=== PATIENT | male | born 1985 | race Caucasian/White ===

== ENCOUNTER 2020-02-10 23:21 | Emergency (ER) | payer SELFPAY ==
[2020-02-10 23:41] VITALS: BP 151/83; PULSE 93; RESP 18; TEMP 37.4; O2SAT 98
--- NOTE | 2020-02-11 00:02 | PC.NURSE ---
pt left facility at this time. he states i'm going to leave because for some reason my arm just doesnt hurt anymore. pt instructed by this rn that he can return if symptoms reappear and/or worsen. pt ambulated out of facility w/ steady gait w/ girlfriend.
== END 2020-02-11 00:02 | disposition left against medical advice (07) ==
LOC: ANHED 02-11 00:33
DX: M25.521 Pain in right elbow (principal)
CPT/HCPCS: 99199

== ENCOUNTER 2020-03-01 18:25 | Emergency (ER) | payer BC, SELFPAY ==
[2020-03-01 18:37] VITALS: BP 126/70; PULSE 97; RESP 16; TEMP 37.1; O2SAT 100
--- NOTE | 2020-03-01 19:07 | ED.SKABFB ---
HPI - Skin/Abscess/Foreign Bdy General Chief complaint: Skin/Abscess/Foreign Body Stated complaint: insect bite Time Seen by Provider: 03/01/20 19:07 Source: patient Mode of arrival: ambulatory Limitations: no limitations History of Present Illness HPI narrative: Dalton Robledo is a 34 yo male with no PMH who got a tick bite 12 days ago- has classic bulls eye rash on R lower quadrant, no other symptoms. His mother pulled off tick but unsure if completely removed Related Data Allergies Allergy/AdvReac Type Severity Reaction Status Date / Time No Known Allergies Allergy Verified 03/01/20 18:43 Review of Systems Review of Systems: Narrative: CONSTITUTIONAL: Denies fever, chills, sweats. EYES: Denies visual changes, redness, discharge. ENT: Denies rhinorrhea, congestion, sore throat, otalgia. CARDIOVASCULAR: Denies chest pain, palpitations, edema. RESPIRATORY: Denies dyspnea, wheezing, cough GASTROINTESTINAL: Denies abdominal pain, nausea, vomiting, diarrhea. GENITOURINARY: Denies dysuria, hematuria, abnormal discharge SKIN: Denies rash or itching. Bull's-eye rash to right lower quadrant NEUROLOGIC: Denies numbness, or focal weakness. PSYCHIATRIC: Denies anxiety or depression. [facility] Family History Family History Other No acute medical problems Social History Social History (Updated 03/01/20 @ 19:14 by Erika Burden CNP) Smoking status: Never smoker Alcohol intake: current Alcohol use details: States drinks more than socially Comments At time of signature, I agree with nursing past medical, surgical, social and family history. There is no relevant family history pertinent to the presenting complaint. Exam Narrative: Exam Narrative: GENERAL: This is a well-nourished, well-developed patient, in mild distress. HEAD: normocephalic, atraumatic. EYES: Sclera clear/white. Vision is grossly intact. EARS: External ears normal, Hearing grossly intact. NOSE: External nose normal without nasal discharge, nares without redness, no rhinorrhea. THROAT: Mucous membranes moist, NECK: Neck supple, CARDIOVASCULAR: Regular rate and rhythm without murmurs, gallops, or rubs. RESPIRATORY: Clear to auscultation. Breath sounds equal bilaterally. No wheezes, rales, or rhonchi. GASTROINTESTINAL: Abdomen soft, SKIN: warm, intact with no suspicious lesions or rash, good texture and turgor. Classic bull's-eye circular rash to right lower abdomen tender in the center becoming indurated at the outer edges NEURO: awake, alert, and oriented to person, place and time. There were no obvious focal neurologic abnormalities. Steady gait EXTREMITIES: Normal range of motion. BACK: Nontender without deformity Course Course Emergency Course: Started on doxycycline 100 mg twice daily x14 days- Clean area well Patient should contact primary care physician if becomes symptomatic for Lyme disease titers Vital Signs Vital signs: Vital Signs Temperature 98.8 F 03/01/20 18:37 Pulse Rate 97 03/01/20 18:37 Respiratory Rate 16 03/01/20 18:37 Blood Pressure 126/70 03/01/20 18:37 Pulse Oximetry 100 03/01/20 18:37 Temperature 98.8 F 03/01/20 18:37 Pulse Rate 97 03/01/20 18:37 Respiratory Rate 16 03/01/20 18:37 Blood Pressure 126/70 03/01/20 18:37 Pulse Oximetry 100 03/01/20 18:37 MDM - Skin/Abscess/Foreign Bdy Differential Diagnosis Differential diagnosis: Likely abscess of skin or subcutaneous tissue, cellulitis, insect bites and other (Tick bite) Discharge Plan Discharge Clinical Impression: Tick bite of abdomen Qualifiers: Encounter type: initial encounter Qualified Code(s): S30.861A - Insect bite (nonvenomous) of abdominal wall, initial encounter Patient Disposition: Home, Self-Care Condition: Stable Instructions: Antibiotic Form, Lyme Disease (ED), Tick Bite (ED) Additional Instructions: Clean area well monitor symptom
== END 2020-03-01 19:23 | disposition home or self-care (01) ==
PROVIDERS: Emergency Provider Nurse Practitioner
DX: S30.861A Insect bite (nonvenomous) of abdominal wall, initial encounter (principal); W57.XXXA Bitten or stung by nonvenomous insect and other nonvenomous arthropods, initial encounter
CPT/HCPCS: 99213; G0463

== ENCOUNTER → 2020-05-16 15:28 | Outpatient (CLI) | payer BC, SELFPAY ==
--- NOTE | ~2020-05-16 | XR_ITS ---
XR knee LT min 4V 05/16/2020 15:51 Indication: Left knee pain Procedure: 4 views left knee Comparison: No prior studies for comparison. Findings: No fracture or traumatic malalignment. No significant joint effusion. No joint space narrow ing. No foreign bodies. Impression: 1: No significant bone or joint abnormality. Reviewed, dictated and finalized at location A. Impression: 1: No significant bone or joint abnormality.
== END ==
LOC: EXPCRAD 15:33
PROVIDERS: PCP Emergency Medicine; Visit Provider Emergency Medicine
DX: M25.562 Pain in left knee (principal)
CPT/HCPCS: 73564

== ENCOUNTER 2021-07-08 19:53 | Emergency (ER) | payer BC, SELFPAY ==
--- NOTE | ~2021-07-08 | XR_ITS ---
XR chest 1V portable DATE: 07/08/2021 20:35 INDICATION: Shortness of breath. Covid-positive. TECHNIQUE: Portable AP views on 07/08/2021 at 2027 hours COMPARISON: None FINDINGS: Normal heart size. There are patchy groundglass appearing infiltrates in the mid and lower lung zones bilaterally. No hilar or mediastinal enlargement. No pleural effusion or pulmonary vascular congestion or pneumoth orax. IMPRESSION: Patchy groundglass bilateral pulmonary infiltrates suggestive of Covid pneumonia Reviewed, dictated and finalized at location A. IMPRESSION: Patchy groundglass bilateral pulmonary infiltrates suggestive of Co vid pneumonia
--- NOTE | 2021-07-08 20:20 | ECG_ITS ---
Measurements Intervals [place] Rate: 99 P: 56 [place]: 128 QRS: 44 QRSD: 95 T: 48 QT: 326 QTc: 420 Interpretive Statements SINUS RHYTHM INCOMPLETE RIGHT BUNDLE BRANCH BLOCK BORDERLINE ECG Electronically Signed On 07-09-2021 6:11:35 CDT by David Stern D.O.
[2021-07-08 20:31] VITALS: BP 133/72; PULSE 107; RESP 20; TEMP 38.8; O2SAT 95
--- NOTE | 2021-07-08 20:52 | PC.NURSE ---
also c/o diarrhea since 06/30 and pain with urination
[2021-07-08] MEDS: SODIUM CHLORIDE 0.9% IV 1,000 ML 999 ML (20:53)
[2021-07-08 21:01] LABS: Hemoglobin 14.8 g/dL (14.0-18.0); Immature Granulocyte Absolute 0.01 K/mm3 (0.00-0.031); Immature Granulocyte Percent A 0.4 % (0-0.5); Immature Platelet Fraction Pct 3.8 % (0.9-11.2); Lymphocytes Absolute Auto 0.41 K/mm3 (0.9-3.2); Lymphocytes Percent Auto 14.6 % (18.3-44.2); Mean Corpuscular HGB Conc 35.2 g/dl (32-36); Mean Corpuscular Hemoglobin 31.9 pg (26-34); Mean Corpuscular Volume 90.5 fl (80-100); Monocytes Absolute Auto 0.2 K/mm3 (0.1-0.6); Monocytes Percent Auto 7.8 % (2.6-8.5); Neutrophils Absolute Auto 2.2 K/mm3 (1.3-6.7); Neutrophils Percent Auto 77.2 % (45.5-73.1); Platelet Count Result 160 k/mm3 (150-375); Red Blood Count 4.64 M/mm3 (4.6-6.20); Red Cell Distribution Width 10.7 % (11.5-14.5); White Blood Count 2.8 K/mm3 (4.5-10.0)
[2021-07-08 21:08] LABS: Prothrombin Time 12.6 Seconds (11.1-14.7)
--- NOTE | 2021-07-08 21:08 | ED.SOB ---
HPI - SOB/Dyspnea General Chief Complaint: Shortness of Breath/Dyspnea Stated Complaint: covid +, shortness of breath, fever Time Seen by Provider: 07/08/21 20:32 Source: patient and RN notes reviewed Mode of arrival: ambulatory Limitations: no limitations History of Present Illness HPI Narrative: This is a 35 year old male who presents for evaluation of shortness of breath. He developed symptoms of COVID 8 days ago. He reports cough, body aches, fever chills and diarrhea. He tested positive on 07/02/21. He has continue to work painting a house. Today he has worsening cough, shortness of breath, weakness. He was found to have fever 102 f in ER. He last took tylenol 1 g at noon. He tried his 's nebulizer last night without relief. He denies chest pain, vomiting. Related Data Home Medications Medication Instructions Recorded Confirmed paroxetine HCl mg PO 07/08/21 Allergies Allergy/AdvReac Type Severity Reaction Status Date / Time No Known Allergies Allergy Verified 03/01/20 18:43 Review of Systems Review of Systems: All systems reviewed & are unremarkable except as noted in HPI and below Constitutional: Constitutional: Reports chills and Reports fever(s) ENT: Denies sore throat Cardiovascular: Cardiovascular: Denies chest pain Respiratory: Respiratory: Reports cough and Reports dyspnea Gastrointestinal: Gastrointestinal: Denies abdominal pain, Reports diarrhea, Reports nausea and Denies vomiting [facility] Past Medical History Medical History (Updated 07/09/21 @ 00:01 by Gini Wilson) Anxiety Family History Family History Other No acute medical problems Social History Social History (Updated 03/01/20 @ 19:14 by Erika Burden CNP) Smoking status: Never smoker Alcohol intake: current Alcohol use details: States drinks more than socially Exam Const: General: no acute distress and alert Orientation/consciousness: patient oriented x3 Eyes: EOM: EOMs intact bilaterally Chest: Chest palpation & inspection: normal inspection of the chest Resp: Effort & Inspection: normal respiratory effort, not labored, no retractions and not tachypneic Auscultation: crackles Cardio: Rate: tachycardic Rhythm: regular rhythm Heart sounds: no murmurs GI: GI Palp: Yes Soft to palpation, No Tenderness to palpation present (GI) and No Guarding due to palpation present (GI) Auscultation: normal bowel sounds Neuro: General: patient oriented x3, moves all extremities and CN's II-XI intact bilaterally Extrem: General: normal to inspection Psych: Mental Status: mental status grossly normal Affect: normal affect Course Reevaluation(s) Reevaluation #1: Patient states he feels much better. I Discussed xray shows pneumonia but he is not requiring oxygen. Ambulation pulse oximeter shows saturation 95-96%. Labs show mild leukopenia . He denies any other questions or concerns. Date: 07/08/21 Time: 22:53 Vital Signs Vital signs: Vital Signs Temperature 102 F H 07/08/21 20:31 Pulse Rate 107 H 07/08/21 20:31 Respiratory Rate 20 07/08/21 20:31 Blood Pressure 133/72 07/08/21 20:31 Pulse Oximetry 95 07/08/21 20:31 Temperature 98.4 F 07/08/21 23:29 Pulse Rate 71 07/08/21 23:45 Respiratory Rate 16 07/08/21 23:45 Blood Pressure 137/74 07/08/21 23:29 Pulse Oximetry 100 07/08/21 23:45 MDM - SOB/Dyspnea Lab Data Attestation: I reviewed the patient's lab results. Result diagrams: 07/08/21 20:49 07/08/21 20:49 Labs: Lab Results 07/08/21 07/08/21 07/08/21 Range/Units 20:49 20:49 20:49 WBC 2.8 L (4.5-10.0) K/mm3 RBC 4.64 (4.6-6.20) M/mm3 Hgb 14.8 (14.0-18.0) g/dL Hct 42.0 (42.0-52.0) % MCV 90.5 (80-100) fl MCH 31.9 (26-34) pg MCHC 35.2 (32-36) g/dl RDW 10.7 L (11.5-14.5) % Plt Count 160 (150-375) k/mm3
[2021-07-08 21:09] LABS: Partial Thromboplastin Time 30.9 SECONDS (22.3-36.8)
[2021-07-08 21:12] LABS: D Dimer 0.37 ug/mL (<0.48)
[2021-07-08] MEDS: ALBUTEROL SULFATE (*SP) AEROSOL 1 PUFF 2 PUFF INHALATION (21:14)
[2021-07-08 21:15] LABS: Alanine Aminotransferase 24 U/L (4-50); Albumin Level 4.2 g/dL (3.5-5.1); Alkaline Phosphatase 66 U/L (38-126); Anion Gap 7 mmol/L (8-16); Aspartate Amino Transferase 33 U/L (17-59); Bilirubin,Total 0.5 mg/dL (0.2-1.3); Blood Urea Nitrogen 12 mg/dL (9-20); CRP 2.9 mg/dL (<1.0); Calcium 8.8 mg/dL (8.4-10.2); Carbon Dioxide 29 mmol/L (22-30); Chloride 101 mmol/L (98-107); Estimated CRCL calculation 125 ml/min; Estimated Glomerular Filt Rate > 60; Glucose 108 mg/dL (65-110); Potassium 4.1 mmol/L (3.4-5.0); Sodium 137 mmol/L (137-145)
[2021-07-08 21:37] VITALS: PULSE 106; RESP 20; O2SAT 99
[2021-07-08] MEDS: BENZONATATE 100 MG CAPSULE 200 MG PO (22:29)
[2021-07-08 23:29] VITALS: BP 137/74; PULSE 99; RESP 19; TEMP 36.9; O2SAT 94
[2021-07-08 23:45] VITALS: PULSE 71; RESP 16; O2SAT 100
== END 2021-07-08 23:46 | disposition home or self-care (01) ==
PROVIDERS: Emergency Provider General Practice; PCP Emergency Medicine
DX: U07.1 COVID-19 (principal); J12.82 Pneumonia due to coronavirus disease 2019; I45.10 Unspecified right bundle-branch block
CPT/HCPCS: 36415; 71045; 80053; 85025; 85055; 85380; 85610; 85730; 86140; 93005; 96361; 96374; 99284; A9270; J0131; J7030

== ENCOUNTER 2023-12-06 15:00 | Emergency (ER) | payer BC, SELFPAY ==
--- NOTE | 2023-12-06 15:03 | ED_ITS ---
HPI - URI/Sore Throat General Stated Complaint: Vomiting/Headache Source: patient and RN notes reviewed Mode of arrival: ambulatory Limitations: no limitations Related Data Home Medications Medication Instructions Recorded Confirmed paroxetine HCl 10 mg tablet mg PO 07/08/21 Allergies Allergy/AdvReac Type Severity Reaction Status Date / Time No Known Allergies Allergy Verified 03/01/20 18:43 Review of Systems Review of Systems: CONSTITUTIONAL: Denies malaise, chills, sweats, or fever. ENT: Denies rhinorrhea, congestion, sinus pain, otalgia or sore throat. CARDIOVASCULAR: Denies chest pain, palpitations, or edema. RESPIRATORY: Denies cough or dyspnea. GASTROINTESTINAL: Denies abdominal pain, nausea, vomiting, diarrhea, bloody, or mucous stools. GENITOURINARY: Denies dysuria or hematuria. MUSCULOSKELETAL: Denies myalgia. NEUROLOGIC: Denies headache. All systems reviewed & are unremarkable except as noted in HPI and below PMFSH Past Medical History Medical History (Updated 07/09/21 @ 00:01 by Gini Wilson) Anxiety Family History Family History Other No acute medical problems Social History Social History (Updated 03/01/20 @ 19:14 by Erika Burden, [employer]) Smoking status: Never smoker Alcohol intake: current Alcohol use details: States drinks more than socially Comments At time of signature, agree with nursing past medical, surgical, social and family history. There is no relevant family history pertinent to the presenting complaint Exam Narrative: GENERAL: Well-appearing, well-nourished, and in no acute distress. HEAD: Normocephalic, atraumatic. EYES: PERRLA, conjunctivae clear, and EOMI. ENT: Nares clear, turbinates pink, no rhinorrhea or epistaxis. Mucous membranes moist. Oropharynx without edema, erythema, or lesions. Tonsils not enlarged and without exudate. NECK: Supple. No lymphadenopathy CHEST: Speaks in full sentences. No respiratory distress. HEART: Regular rate and rhythm. ABDOMEN: Soft, flat, nondistended, nontender. No guarding, rebound tenderness, or rigidity. No pulsatile masses. Bowel sounds present in all four quadrants. No organomegaly. Negative Berger?s sign. No periumbilical tenderness. No Supra public tenderness or distension. Good femoral pulses bilaterally. No hernia noted. No scars or surface trauma. SKIN: Warm, dry, no rash. NEURO: Alert and oriented x3. PSYCH: Normal mood and affect Course Course Emergency Course: Patient is aware of diagnosis, understands and agrees to treatment plan. Anticipatory guidance given. Patient agrees to follow-up as directed and is aware of reasons to seek care at the emergency department. Portions of this record may have been created with voice recognition software Level of Care: Express Care Visit Vital Signs Vital signs: Reviewed. Critical Care Time Critical Care Time Critical Care Time: No Discharge Plan Discharge Prescriptions: No Action paroxetine HCl 10 mg Tablet PO albuterol sulfate 90 mcg/actuation HFA aerosol inhaler 2 puff inhalation QID PRN (Reason: shortness of breath or wheezing) Qty: 6.7 0RF benzonatate 200 mg capsule 200 mg PO TID PRN (Reason: cough) Qty: 14 0RF Follow-up/Referrals: Theo Kern MD [Primary Care Provid
== END 2023-12-06 15:01 | disposition left against medical advice (07) ==
LOC: EXPCOLL 15:05
PROVIDERS: PCP Emergency Medicine
DX: Z53.21 Procedure and treatment not carried out due to patient leaving prior to being seen by health care provider (principal)
CPT/HCPCS: 99199

== ENCOUNTER 2023-12-06 15:16 | Emergency (ER) | payer BC, SELFPAY ==
[2023-12-06] VITALS (19 sets, daily range): BP systolic 127–146; BP diastolic 77–90; PULSE 85–107; RESP 12–23; O2SAT 88–100
--- NOTE | ~2023-12-06 | XR_ITS ---
EXAMINATION: XR chest 2V DATE: 12/06/2023 17:36 INDICATION: Chest pain. TECHNIQUE: Frontal and lateral views of the chest were obtained on 3 radiographs. COMPARISON: Chest single view 07/08/2021 FINDINGS: There is no pneumonia, pleural effusion, or pneumothorax. The heart size is normal. IMPRESSION: 1. No acute cardiopulmonary disease. Reviewed, dictated and finalized at location E.
--- NOTE | 2023-12-06 15:38 | ECG_ITS ---
Measurements Intervals [place] Rate: 89 P: 66 [place]: 129 QRS: 43 QRSD: 101 T: 60 QT: 375 QTc: 456 Interpretive Statements SINUS RHYTHM INCOMPLETE RIGHT BUNDLE BRANCH BLOCK BASELINE ARTIFACT- I, II, AVR, AVL, V1-V2 BORDERLINE ECG COMPARED TO ECG 07/08/2021 21:10:53 NO SIGNIFICANT CHANGES Electronically Signed On 12-06-2023 19:56:56 CDT by David Stern D.O.
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
[2023-12-06 16:11] LABS: Basophils Absolute Auto 0.1 K/mm3 (0.0-0.1); Basophils Percent Auto 0.4 % (0.2-1.2); Eosinophils Percent Auto 0.3 % (0-4.4); Hematocrit 47.9 % (42.0-52.0); Hemoglobin 16.4 g/dL (14.0-18.0); Immature Granulocyte Absolute 0.06 K/mm3 (0.00-0.031); Immature Granulocyte Percent A 0.4 % (0-0.5); Lymphocytes Percent Auto 7.8 % (18.3-44.2); Mean Corpuscular HGB Conc 34.2 g/dl (32-36); Mean Corpuscular Hemoglobin 30.8 pg (26-34); Mean Platelet Volume 9.1 fl (7.4-10.4); Monocytes Absolute Auto 0.5 K/mm3 (0.1-0.6); Monocytes Percent Auto 3.5 % (2.6-8.5); Neutrophils Absolute Auto 12.4 K/mm3 (1.3-6.7); Neutrophils Percent Auto 87.6 % (45.5-73.1); Platelet Count Result 296 k/mm3 (150-375); Red Blood Count 5.32 M/mm3 (4.6-6.20); Red Cell Distribution Width 11.4 % (11.5-14.5); White Blood Count 14.1 K/mm3 (4.5-10.0)
[2023-12-06] MEDS: ONDANSETRON INJ 4 MG/2 ML VIAL IV PUSH (16:14)
[2023-12-06] MEDS: LACTATED RINGERS 1,000 ML 999 ML IV CONT (16:14)
[2023-12-06] MEDS: PANTOPRAZOLE SODIUM IV 40 MG VIAL IV PUSH (16:15)
--- NOTE | 2023-12-06 16:15 | PC.NURSE ---
Patient refused ativan. Patient and patient at bedside adamant that patient does not like how anxiety meds make him feel .
[2023-12-06 16:23] LABS: Alanine Aminotransferase 23 U/L (6-50); Albumin Level 4.9 g/dL (3.5-5.1); Alkaline Phosphatase 82 U/L (38-126); Anion Gap 12 mmol/L (4-12); Aspartate Amino Transferase 28 U/L (17-59); Bilirubin,Total 0.7 mg/dL (0.2-1.3); Blood Urea Nitrogen 12 mg/dL (9-20); Calcium 9.5 mg/dL (8.4-10.2); Carbon Dioxide 25 mmol/L (22-30); Chloride 105 mmol/L (98-107); Estimated Glomerular Filt Rate > 60; Glucose 128 mg/dL (65-110); Lipase 31 U/L (23-300); Magnesium 2.2 mg/dL (1.6-2.3); Potassium 3.5 mmol/L (3.4-5.0); Sodium 142 mmol/L (137-145)
[2023-12-06 16:34] LABS: Troponin I < 0.012 ng/mL (0.000-0.034)
[2023-12-06 19:07] LABS: Acetaminophen < 10 ug/mL (10-30); Ethanol 85 mg/dL (<10); Salicylate < 1.0 mg/dL (2-20)
[2023-12-06 19:12] LABS: Appearance Urine Turbid (Clear); Bacteria Urine None Seen /hpf; Bilirubin Urine Negative (Negative); Blood Urine Negative (Negative); Color Urine Dark Yellow (Yellow); Glucose Urine UA Negative (Negative); Ketones Urine Trace mg/dL (Negative); Leukocyte Esterase Ur Negative LEU/UL (Negative); Nitrate Urine Negative (Negative); Non Pathogenic Casts 0-2; Protein Urine 1+ mg/dL (Negative); RBC Urine 0-2 /hpf (0-2); Squamous Epithelial Cell Urine None Seen /hpf (Few); WBC Urine 0-5 /hpf (0-3)
[2023-12-06 19:27] LABS: Specific Grav Ur 1.032 (1.001-1.035)
[2023-12-06 19:28] LABS: Add Urine Microscopic? YES
[2023-12-06 19:40] LABS: Influenza A QL RT-PCR Negative (Negative); Influenza B QL RT-PCR Negative (Negative); RSV RNA, RT-PCR Negative (Negative); SARS-CoV-2 RNA PCR Negative (Negative)
[2023-12-06 19:43] LABS: Barbiturate Screen Urine Negative (Negative); Benzodiazepines Screen Urine Negative (Negative)
[2023-12-06 20:05] LABS: Amphetamine Screen Urine Positive (Negative); Cannabinoid Screen Urine Negative (Negative); Cocaine Screen Urine Negative (Negative); Methadone Screen Urine Negative (Negative); Opiate Screen Urine Negative (Negative); Phencyclidine Screen Urine Negative (Negative)
[2023-12-06] MEDS: ONDANSETRON HCL ODT 4 MG TABLET PO (20:39)
== END 2023-12-06 20:57 | disposition home or self-care (01) ==
PROVIDERS: Emergency Provider Student in an Organized Health Care Education/Training Program
DX: R20.2 Paresthesia of skin (principal); F10.129 Alcohol abuse with intoxication, unspecified; R11.2 Nausea with vomiting, unspecified; F41.9 Anxiety disorder, unspecified; Z20.822 Contact with and (suspected) exposure to COVID-19
CPT/HCPCS: 36415; 71046; 80053; 80307; 81001; 83690; 83735; 84443; 84484; 85025; 87637; 93005; 96361; 96374; 96375; 99284; A9270; C9113; J2405; J7120

== ENCOUNTER 2023-12-15 16:32 | Emergency (ER) | payer BC, SELFPAY ==
--- NOTE | ~2023-12-15 | CT_ITS ---
EXAMINATION: CT abdomen pelvis w con DATE: 12/15/2023 17:56 INDICATION: Low abdominal pain. Diarrhea. Fever. TECHNIQUE: Computed tomography (CT) of the abdomen and pelvis was performed with 100 mL Omnipaque 350 intravenous contrast. Automated exposure control and iterative reconstruction technique were employe d. The dose-length product was 409.65 mGy-cm. COMPARISON: None. FINDINGS: The visualized portions of the lung bases demonstrate mild atelectasis. No pleural effusion . The heart size is normal. No pericardial effusion. The liver, gallbladder, spleen, pancreas, adrena l glands, and right kidney are normal. There is an 8 mm cyst in left kidney. There is wall thickening throughout the colon, worst in the ascending and transverse colon where there is surrounding fat str anding. The appendix is not visualized. There is mild mesenteric lymphadenopathy. There is a small vo lume of pelvic ascites. There is mild lumbar spondylosis. IMPRESSION: 1. Colitis. 2. Small volume of ascites. 3. Mild mesenteric lymphadenopathy, likely reactive. Reviewed, dictated and finalized at location E.
[2023-12-15 16:33] VITALS: BP 134/74; PULSE 100; RESP 20; TEMP 37.7; O2SAT 100
[2023-12-15 17:17] LABS: Basophils Percent Auto 0.2 % (0.2-1.2); Hematocrit 44.6 % (42.0-52.0); Hemoglobin 15.3 g/dL (14.0-18.0); Immature Granulocyte Absolute 0.03 K/mm3 (0.00-0.031); Immature Granulocyte Percent A 0.4 % (0-0.5); Lymphocytes Absolute Auto 0.46 K/mm3 (0.9-3.2); Lymphocytes Percent Auto 5.7 % (18.3-44.2); Mean Corpuscular HGB Conc 34.3 g/dl (32-36); Mean Corpuscular Hemoglobin 30.8 pg (26-34); Mean Corpuscular Volume 89.9 fl (80-100); Mean Platelet Volume 9.5 fl (7.4-10.4); Monocytes Absolute Auto 0.3 K/mm3 (0.1-0.6); Monocytes Percent Auto 3.7 % (2.6-8.5); Neutrophils Absolute Auto 7.3 K/mm3 (1.3-6.7); Platelet Count Result 149 k/mm3 (150-375); Red Blood Count 4.96 M/mm3 (4.6-6.20); Red Cell Distribution Width 11.3 % (11.5-14.5); White Blood Count 8.1 K/mm3 (4.5-10.0)
[2023-12-15 17:28] LABS: Lactic Acid Reflex 1.5 mmol/L (0.7-2.0)
[2023-12-15 18:00] LABS: Appearance Urine Clear (Clear); Bacteria Urine None Seen /hpf; Bilirubin Urine Negative (Negative); Blood Urine 2+ (Negative); Color Urine Dark Yellow (Yellow); Glucose Urine UA 1+ mg/dL (Negative); Ketones Urine 1+ mg/dL (Negative); Leukocyte Esterase Ur Negative LEU/UL (Negative); Need Manual Microscopic Reviewed; Nitrate Urine Negative (Negative); Protein Urine 2+ mg/dL (Negative); Specific Grav Ur 1.025 (1.001-1.035); Squamous Epithelial Cell Urine None Seen /hpf (Few); Urobilinogen Urine 0.2 mg/dL (<2.0); WBC Urine 0-5 /hpf (0-3); pH Urine 5.5 (5.0-9.0)
[2023-12-15] MEDS: ACETAMINOPHEN 500 MG TABLET 1000 MG PO (18:01)
[2023-12-15] MEDS: DICYCLOMINE HCL 10 MG CAPSULE 20 MG PO (18:01)
[2023-12-15] MEDS: POTASSIUM CHLORIDE 20 MEQ PACKET (FOR LIQUID) 40 MEQ PO (18:02)
[2023-12-15] MEDS: SODIUM CHLORIDE 0.9% IV 1,000 ML 999 ML IV CONT ×2 (18:02)
--- NOTE | 2023-12-15 18:02 | ED.ABDPAIN ---
HPI - Abdominal Pain General Chief Complaint: Abdominal Pain Stated Complaint: ABD PAIN X2D Time Seen by Provider: 12/15/23 16:57 Source: patient Mode of arrival: ambulatory Limitations: no limitations History of Present Illness HPI narrative: Patient is a 37-year-old male who presents the ED with report of lower abdominal pain and diarrhea. Patient reports he began feeling ill on Thursday night after eating out with his family at a [employer] food truck. He developed diarrhea that night and reports having multiple profuse episodes which has since persisted. He complains of pain throughout his lower abdomen, described as gas pains. He also reports having intermittent fevers since Thursday night. States family members have not had similar symptoms. He has not taken any Tylenol or ibuprofen today. Denies N/V. Denies cough or cold sx's. Related Data Home Medications Medication Instructions Recorded Confirmed paroxetine HCl 10 mg tablet mg PO 07/08/21 Allergies Allergy/AdvReac Type Severity Reaction Status Date / Time No Known Allergies Allergy Verified 12/06/23 15:16 Review of Systems Review of Systems: CONSTITUTIONAL: See HPI. ENT: Denies rhinorrhea, congestion, sore throat. GASTROINTESTINAL: See HPI. GENITOURINARY: Denies dysuria or hematuria. MUSCULOSKELETAL: Denies back pain, extremity pain, myalgia. All systems reviewed & are unremarkable except as noted in HPI and below PMFSH Past Medical History Medical History (Updated 12/15/23 @ 18:14 by Sapphire Devine PA-C) Anxiety Surgical History Surgical History (Updated 12/15/23 @ 18:05 by Sapphire Devine PA-C) History of appendectomy Family History Family History Other No acute medical problems Social History Social History Smoking status: Never smoker Alcohol intake: current Alcohol use details: States drinks more than socially Exam Narrative: GENERAL: Well appearing, well-nourished, non-toxic, in no acute distress. HEAD: Normocephalic, atraumatic. RESPIRATORY: Airway patent, respirations nonlabored. Clear to auscultation bilaterally, no rales, rhonchi, wheezing. CARDIOVASCULAR: Regular rate and rhythm without murmurs, rubs, or gallops. ABDOMINAL: Soft, mild tenderness in epigastric region, more focal tenderness in right lower quadrant, no rebound, nondistended. Normoactive BS. MUSCULOSKELETAL: Moves all extremities. No gross deformities. SKIN: Warm, dry, normal color. NEURO: A&O X3. Speech clear. Cranial nerves II-XII grossly intact. Steady gait. No ataxic movements. PSYCHIATRIC: Appropriate mood and affect. Normal interaction. Course Vital Signs Vital signs: Vital Signs Temperature 99.8 F H 12/15/23 16:33 Pulse Rate 100 12/15/23 16:33 Respiratory Rate 20 12/15/23 16:33 Blood Pressure 134/74 12/15/23 16:33 Pulse Oximetry 100 12/15/23 16:33 Oxygen Delivery Room Air 12/15/23 16:33 Temperature 99.8 F H 12/15/23 16:33 Pulse Rate 100 12/15/23 16:33 Respiratory Rate 20 12/15/23 16:33 Blood Pressure 134/74 12/15/23 16:33 Pulse Oximetry 100 12/15/23 16:33 Oxygen Delivery Room Air 12/15/23 16:33 MDM - Abdominal Pain MDM Narrative Medical decision making narrative: Patient presented to ED with 2 day history of diarrhea, lower abdominal pain, fevers. Patient borderline febrile upon arrival. Fluids and tylenol initiated. Vitals are otherwise stable. In no acute distress. Cbc without leukocytosis. Stable H&H. CMP with sodium 131, potassium 3.2. Oral replacement ordered. Magnesium WNL. Lactic acid WNL. Normal lfts and lipase. UA with evidence of dehydration, no signs of infection. Fluids ongoing. CT abd/pelvis showing evidence of colitis with small amount of ascites. No other surgical findings. Discussed lab and imaging results with patient. On re-ev
[2023-12-15 18:11] LABS: Add Urine Microscopic? YES
[2023-12-15 18:14] LABS: Alanine Aminotransferase 15 U/L (6-50); Albumin Level 4.4 g/dL (3.5-5.1); Alkaline Phosphatase 71 U/L (38-126); Anion Gap 11 mmol/L (4-12); Aspartate Amino Transferase 21 U/L (17-59); Bilirubin,Total 0.6 mg/dL (0.2-1.3); Blood Urea Nitrogen 11 mg/dL (9-20); Calcium 9.5 mg/dL (8.4-10.2); Carbon Dioxide 20 mmol/L (22-30); Chloride 101 mmol/L (98-107); Estimated CRCL calculation 100 ml/min; Estimated Glomerular Filt Rate > 60; Glucose 191 mg/dL (65-110); Lipase 30 U/L (23-300); Potassium 3.2 mmol/L (3.4-5.0); Sodium 132 mmol/L (137-145)
[2023-12-15 18:30] LABS: Magnesium 2.2 mg/dL (1.6-2.3)
[2023-12-15 18:46] LABS: Influenza A QL RT-PCR Negative (Negative); Influenza B QL RT-PCR Negative (Negative); RSV RNA, RT-PCR Negative (Negative); SARS-CoV-2 RNA PCR Negative (Negative)
[2023-12-15] MEDS: KETOROLAC 30 MG/ML VIAL (*BKC) IV PUSH (19:30)
[2023-12-15 19:41] VITALS: BP 129/77; PULSE 91; RESP 17; O2SAT 99
== END 2023-12-15 19:45 | disposition home or self-care (01) ==
PROVIDERS: Emergency Provider Physician Assistant
DX: K52.9 Noninfective gastroenteritis and colitis, unspecified (principal); R10.30 Lower abdominal pain, unspecified; E86.0 Dehydration; Z20.822 Contact with and (suspected) exposure to COVID-19; F41.9 Anxiety disorder, unspecified
CPT/HCPCS: 36415; 74177; 80053; 81001; 83605; 83690; 83735; 85025; 87637; 96361; 96374; 99284; A9270; J1885; J7030; Q9967

== ENCOUNTER 2024-01-26 19:44 | Emergency (ER) | payer BC, SELFPAY ==
[2024-01-26 19:47] VITALS: BP 144/104; PULSE 132; RESP 18; TEMP 36.9; O2SAT 98
--- NOTE | 2024-01-26 20:15 | ED.PSYCH ---
HPI - Psych General Chief Complaint: Psychiatric Symptoms <ALEX Sanches Last Filed: 01/27/24 03:11> Stated Complaint: REQUESTING CRISIS EVALUATION <ALEX Sanches Last Filed: 01/27/24 03:11> Time Seen by Provider: 01/26/24 20:06 <ALEX Sanches Last Filed: 01/27/24 03:11> Source: patient <ALEX Sanches Last Filed: 01/27/24 03:11> Mode of arrival: ambulatory <ALEX Sanches Last Filed: 01/27/24 03:11> Limitations: no limitations <ALEX Sanches Last Filed: 01/27/24 03:11> History of Present Illness HPI Narrative: This is a 38-year-old male who presents to the ED with chief complaint of suicidal ideations for the past several weeks. Patient reports a lot of stress at home with his family and his . He also reports a lot of work related stress as well as the marital problems. Denies any specific plan but states he is constantly having thoughts of wanting to end it all. States he is a chronic alcoholic and he did drink 4 shots of hard liquor before walking into the ER. Denies HI or any other substance use. Denies prior psychiatric admissions. Denies any medical complaints <ALEX Sanches Last Filed: 01/27/24 03:11> Related Data Home Medications: Home Medications Medication Instructions Recorded Confirmed paroxetine HCl 10 mg tablet mg PO 07/08/21 <ALEX Sanches Last Filed: 01/27/24 03:11> Allergies/Adverse Reactions: Allergies Allergy/AdvReac Type Severity Reaction Status Date / Time No Known Allergies Allergy Verified 12/06/23 15:16 <ALEX Sanches Last Filed: 01/27/24 03:11> PMFSH Past Medical History Medical History: Medical History (Updated 01/27/24 @ 05:20 by Louie Bearden MD) Anxiety <ALEX Sanches Last Filed: 01/27/24 03:11> Surgical History Surgical History: Surgical History (Updated 12/15/23 @ 18:05 by Sapphire Devine PA-C) History of appendectomy <Blair Casas PA-C - Last Filed: 01/27/24 03:11> Family History Family History: Family History Other No acute medical problems <Blair Casas PA-C - Last Filed: 01/27/24 03:11> Social History Social History: Social History Smoking status: Never smoker Alcohol intake: current Alcohol use details: States drinks more than socially Substance use type: does not use <Blair Casas PA-C - Last Filed: 01/27/24 03:11> Exam Narrative: GENERAL: Well-appearing, well-nourished, and in no acute distress. HEAD: Normocephalic, atraumatic. EYES: PERRLA and EOMI. ENT: Nares clear, no rhinorrhea or epistaxis. Mucous membranes moist. Oropharynx without tonsillar hypertrophy exudate or other lesions. NECK: Supple. No adenopathy or masses. CHEST: No respiratory distress. Clear to auscultation. No wheezes rales or rhonchi HEART: Regular rate and rhythm. No murmur heard. Normal peripheral pulses. ABDOMEN: Soft, nontender, nondistended, normal active bowel sounds. MSK: Normal range of motion. No edema. SKIN: Warm, dry, no rash. NEURO: Alert and oriented x3. No focal deficits. PSYCH: Cooperative with exam. Speech is pressured. Thought content is linear and coherent Positive for SI. Negative for plan. Negative for HI No hallucinations. <Blair Casas PA-C - Last Filed: 01/27/24 03:11> Course DERRICKMAN HELPER/PA Physician Supervision For this patient encounter, I reviewed the DERRICKMAN HELPER or PA documentation, treatment plan, and medical decision making and had [id number] time with this patient. I performed all aspects of the MDM as documented. <Louie Bearden MD - Last Filed: 01/27/24 05:20> Vital Signs Vital signs: Vital Signs Temperature 98.4 F 01/26/24 19:47 Pulse Rate 132 H 01/26/24 19:47 Respiratory Rate 18 01/26/24 19:47 Blood Pressu
[2024-01-26 20:52] LABS: Basophils Absolute Auto 0.1 K/mm3 (0.0-0.1); Basophils Percent Auto 0.6 % (0.2-1.2); Eosinophils Absolute Auto 0.1 K/mm3 (0-0.3); Eosinophils Percent Auto 1.2 % (0-4.4); Hematocrit 48.7 % (42.0-52.0); Hemoglobin 16.2 g/dL (14.0-18.0); Immature Granulocyte Absolute 0.01 K/mm3 (0.00-0.031); Immature Granulocyte Percent A 0.1 % (0-0.5); Lymphocytes Absolute Auto 2.89 K/mm3 (0.9-3.2); Lymphocytes Percent Auto 37.5 % (18.3-44.2); Mean Corpuscular HGB Conc 33.3 g/dl (32-36); Mean Corpuscular Hemoglobin 30.5 pg (26-34); Mean Corpuscular Volume 91.7 fl (80-100); Mean Platelet Volume 9.7 fl (7.4-10.4); Monocytes Absolute Auto 0.5 K/mm3 (0.1-0.6); Monocytes Percent Auto 6.4 % (2.6-8.5); Neutrophils Absolute Auto 4.2 K/mm3 (1.3-6.7); Neutrophils Percent Auto 54.2 % (45.5-73.1); Platelet Count Result 288 k/mm3 (150-375); Red Blood Count 5.31 M/mm3 (4.6-6.20); White Blood Count 7.7 K/mm3 (4.5-10.0)
[2024-01-26 20:53] LABS: Appearance Urine Clear (Clear); Bilirubin Urine Negative (Negative); Blood Urine Negative (Negative); Color Urine Yellow (Yellow); Glucose Urine UA Negative (Negative); Ketones Urine Trace mg/dL (Negative); Leukocyte Esterase Ur Negative LEU/UL (Negative); Nitrate Urine Negative (Negative); Protein Urine Negative (Negative); Specific Grav Ur 1.026 (1.001-1.035); pH Urine 5.5 (5.0-9.0)
[2024-01-26 20:56] LABS: Add Urine Microscopic? NO
[2024-01-26 21:04] LABS: Acetaminophen < 10 ug/mL (10-30); Ethanol 186 mg/dL (<10); Salicylate < 1.0 mg/dL (2-20)
[2024-01-26 21:09] LABS: Alanine Aminotransferase 27 U/L (6-50); Albumin Level 5.2 g/dL (3.5-5.1); Alkaline Phosphatase 86 U/L (38-126); Anion Gap 11 mmol/L (4-12); Aspartate Amino Transferase 33 U/L (17-59); Bilirubin,Total 0.5 mg/dL (0.2-1.3); Blood Urea Nitrogen 15 mg/dL (9-20); Calcium 9.7 mg/dL (8.4-10.2); Carbon Dioxide 24 mmol/L (22-30); Chloride 105 mmol/L (98-107); Estimated CRCL calculation 91 ml/min; Estimated Glomerular Filt Rate > 60; Glucose 111 mg/dL (65-110); Potassium 3.5 mmol/L (3.4-5.0); Sodium 140 mmol/L (137-145)
[2024-01-26 21:09] LABS: Barbiturate Screen Urine Negative (Negative); Benzodiazepines Screen Urine Negative (Negative)
[2024-01-26 21:41] LABS: Cannabinoid Screen Urine Negative (Negative); Cocaine Screen Urine Negative (Negative); Methadone Screen Urine Negative (Negative); Opiate Screen Urine Negative (Negative); Phencyclidine Screen Urine Negative (Negative)
[2024-01-26 21:45] LABS: Amphetamine Screen Urine Positive (Negative)
[2024-01-26 21:47] LABS: Influenza A QL RT-PCR Negative (Negative); Influenza B QL RT-PCR Negative (Negative); RSV RNA, RT-PCR Negative (Negative); SARS-CoV-2 RNA PCR Negative (Negative)
[2024-01-27 01:45] LABS: Ethanol 66 mg/dL (<10)
[2024-01-27 06:18] VITALS: PULSE 76; RESP 15; O2SAT 100
== END 2024-01-27 05:20 | disposition home or self-care (01) ==
PROVIDERS: Physician Assistant; Emergency Provider Emergency Medicine; PCP Emergency Medicine
DX: F10.10 Alcohol abuse, uncomplicated (principal); R45.851 Suicidal ideations; F41.9 Anxiety disorder, unspecified; Z20.822 Contact with and (suspected) exposure to COVID-19
CPT/HCPCS: 36415; 80053; 80307; 81003; 84443; 85025; 87637; 99284